=== PATIENT | male | born 1970 ===

== ENCOUNTER → 2017-10-13 13:45 | Day surgery (SDC) | payer BC ==
[~2017-10-13 13:45] MED LIST: Buffered Lidocaine 0.9% SYRIN* 5 ML/SYR SYRINGE INTRADERM ONE; Bupivacaine 0.5% SDV PF* 10-30ML VIAL ONE; Dexamethasone IV* 4 MG/ML 1 ML (4 MG) ONE; Famotidine IV* 10 MG/ML 2 ML (20 mg) IV ONE; Famotidine IV* 10 MG/ML 2 ML (20 mg) ONE; KETAMINE HCL* 50 MG/ML 10 ML VIAL ONE; Ketorolac INJ* 30 MG/ML 1 ML VIAL ONE; Labetalol IV* 5 MG/ML 20 ML VIAL ONE; Lidocaine 1% MPF wEPI 200,000* 30 ML SDV ONE; Lidocaine 2% PF * 5 ML VIAL ONE; Metoclopramide TAB* 10 MG ONE; Metoclopramide TAB* 10 MG PO ONE; Midazolam* 1 MG/ML 10 ML VIAL (10 MG) ONE; Naloxone* 0.4 MG/ML 1 ML VIAL IV PRN; Ondansetron INJ* 2 MG/ML VIAL IV PRN; Ondansetron INJ* 2 MG/ML VIAL ONE; Propofol* 10 MG/ML 20 ML BTL IV PUSH ONE; ceFAZolin 2 GM PREMIX (*) 2 GM/50 ML BAG IVPB ONE; fentaNYL* 50 MCG/ML 2 ML VIAL (100 MCG VIAL) IV PRN; fentaNYL* 50 MCG/ML 2 ML VIAL (100 MCG VIAL) ONE
[2017-10-13 16:40] VITALS: BP 138/94
--- NOTE | 2017-10-14 03:58 | OP ---
CC: Dr. Paulino Saenz * DATE OF OPERATION: 10/13/17 - SDS DATE OF : 66 SURGEON: Raheel Hitchcock MD. SUPERVISOR [employer]ING: Patria Kent NP. ANESTHESIOLOGIST: Dr. Jacobo Bills. ANESTHESIA: LMAC anesthesia. PRE-OP DIAGNOSIS: Umbilical hernia. POST-OP DIAGNOSIS: Umbilical hernia. OPERATIVE PROCEDURE: Open umbilical hernia repair with mesh. DESCRIPTION OF PROCEDURE: The patient was supine on the operative table. After adequate intravenous sedation, compression stockings, Pattie Hugger warmer, and intravenous antibiotics, the abdomen was prepped with antiseptic, draped in a sterile fashion. Curvilinear supraumbilical incision is created and dissection carried down to the hernia sac which was dissected free and reduced. The preperitoneal plane is developed and an 8 cm underlay patch is chosen. This was sewn up underneath with full thickness sutures of 0 Vicryl. This was done at 8 places around the circumference creating a good approximation to the abdominal wall. The fascia was then closed over top using 0 Vicryl. The umbilical skin was tacked back down and the adipose approximated with 3-0 Vicryl. 5-0 Vicryl was used for the skin followed by Steri-Strips. He tolerated the procedure well, was brought to Recovery in good condition. There were no complications. No drains. No pathologic specimens. Sponge and instrument counts were correct. Estimated blood loss 20 mL. [id number] #: [id number] MTDD
== END | disposition home or self-care (01) ==
LOC: OR 13:45
PROVIDERS: ATTEND Surgery
DX: K42.9 Umbilical hernia without obstruction or gangrene (principal); I10 Essential (primary) hypertension; K21.9 Gastro-esophageal reflux disease without esophagitis
CPT/HCPCS: A9270-GY; C1781; J0690; J1100; J1885; J2001; J2250; J2405; J2704; J3010